=== PATIENT | male | born 1960 | race Two or more races ===

== ENCOUNTER → 2024-07-23 | Outpatient (CLI) | payer OTHER, SELFPAY ==
[2024-07-23 09:56] LABS: Prostate Specific Antigen 0.65 ng/mL (0-4.00)
[2024-07-23 10:04] LABS: Alanine Aminotransferase 18 U/L (10-49); Albumin, Serum 4.5 gm/dL (3.4-4.8); Alkaline Phosphatase 86 U/L (46-116); Anion Gap 8 (7-16); Aspartate Amino Transferase 18 U/L (0-34); BUN/Creatinine Ratio 15 Ratio (12-20); Bilirubin,Total 0.5 mg/dL (0.3-1.2); Blood Urea Nitrogen 17 mg/dL (9-23); Calcium 9.4 mg/dL (8.3-10.6); Calcium (Corrected) 9.4 mg/dL (8.5-10.1); Carbon Dioxide 26.1 mMol/L (20.0-31.0); Cardiac Risk Estimate 3.3 RATIO (4.0-6.7); Chloride 107 mMol/L (98-107); Cholesterol 165 mg/dL (132-200); Creatinine (Component) 1.1 mg/dL (0.6-1.3); Free T4 (Free Thyroxine) 1.04 ng/dL (0.89-1.76); Globulin 2.2 gm/dL (2.3-3.5); Glucose 120 mg/dL (74-106); HDL Cholesterol 50 mg/dL (40-60); LDL Cholesterol,Calculated 77 mg/dL (0-130); Osmolality,Calculated 283 (275-295); Potassium 4.2 mMol/L (3.4-5.1); Sodium 141 mMol/L (136-145); Thyroid Stimulating Hormone 5.01 uIU/mL (0.55-4.78); Total Protein 6.7 gm/dL (5.7-8.2); Triglycerides 191 mg/dL (30-150); eGFR > 60 See Note
== END | disposition home or self-care (01) ==
PROVIDERS: PCP Family Medicine; Referring Provider Family Medicine; Visit Provider Family Medicine
DX: E78.1 Pure hyperglyceridemia (principal); E03.2 Hypothyroidism due to medicaments and other exogenous substances; N42.9 Disorder of prostate, unspecified; Z13.1 Encounter for screening for diabetes mellitus
CPT/HCPCS: 36415; 80053; 80061; 84153; 84439; 84443

== ENCOUNTER 2025-02-05 08:00 | Day surgery (SDC) | payer OTHER, SELFPAY ==
[2025-02-04 12:33] VITALS: BMI 37.7
[2025-02-05] VITALS (12 sets, daily range): BP systolic 113–193; BP diastolic 77–120; PULSE 63–72; RESP 16–23; TEMP 36.7–37.1; O2SAT 95–99; BMI 37.7
[2025-02-05] MEDS: SODIUM CHLORIDE 0.9% 500 ML 500 ML 20 ML IV (10:03)
[2025-02-05] MEDS: fentaNYL CIT INJ 50 mCg/ML AMP 2ML (ASD USE ONLY) IVP (10:13)
[2025-02-05] MEDS: MIDAZOLAM INJ 1 MG/ML VIAL 2 ML (ASD USE ONLY) 2 MG IVP (10:13)
[2025-02-05] MEDS: hydrALAZINE INJ 20 MG/ML VIAL 10 MG IVP (10:14)
--- NOTE | 2025-02-05 11:36 | SUR.PHASEII ---
1100 Pt more awake and alert. Denies pain or N/V. Abd remains large, round, yet soft upon palp. Pt barak po fluids. 1115 Pt assessment unchanged. No complaints. Amb with steady gait. Able to dress self. Pt and (both speak Urdu, but prefer written Telugu), given dc instructions. Both state understanding. Pt meets dc criteria-to home.
== END 2025-02-05 11:15 | disposition home or self-care (01) ==
PROVIDERS: PCP Family Medicine; Referring Provider Specialist; Visit Provider Specialist
PROC: 0DBE8ZX Excision of Large Intestine, Via Natural or Artificial Opening Endoscopic, Diagnostic (ICD-10-PCS; CPT 45380; principal; 2025-02-05 09:00)
DX: Z12.11 Encounter for screening for malignant neoplasm of colon (principal); D12.2 Benign neoplasm of ascending colon; K64.1 Second degree hemorrhoids
CPT/HCPCS: 45380; A4649; J0360; J1200; J2250; J3010; J7999